=== PATIENT | female | born 1955 | race Two or more races ===

== ENCOUNTER 2021-10-03 11:40 | Emergency (ER) | payer OTHER ==
[~2021-10-03] VITALS: Ht 152.4 cm; Wt 90.7 kg
[2021-10-03] MEDS ORDERED: LOSARTAN-HCTZ1 EAC1 PO (11:48)
== END 2021-10-03 14:10 | disposition home or self-care (01) ==
LOC: ER 11:40
DX: R41.0 Disorientation, unspecified (principal); I10 Essential (primary) hypertension; E11.9 Type 2 diabetes mellitus without complications

== ENCOUNTER 2021-10-05 12:14 | Inpatient (IN) | payer OTHER ==
[~2021-10-05] VITALS: Ht 152.4 cm; Wt 81.6 kg
[~2021-10-05 12:14] MED LIST: LOSARTAN-HCTZ1 EAC1 PO
[2021-10-05] MEDS ORDERED: HYZAAR 100-251 EACH (12:33)
[2021-10-05] MEDS ORDERED: GLIPIZIDE ER10 MG (12:33)
[2021-10-06] MEDS ORDERED: NAPROXEN500 MG (10:08)
[2021-10-06] MEDS ORDERED: SIMVASTATIN10 MG (10:08)
[2021-10-06] MEDS ORDERED: ALENDRONATE SOD70 MG (10:08)
== END 2021-10-09 23:25 | DRG 66 ==
LOC: ER 12:14 → MEDI 19:38
PROVIDERS: ADMIT Internal Medicine; ATTEND Internal Medicine
PROC: 4A12X4Z Monitoring of Cardiac Electrical Activity, External Approach (ICD-10-PCS; principal; 2021-10-05)
PROC: BW28ZZZ Computerized Tomography (CT Scan) of Head (ICD-10-PCS; 2021-10-05)
PROC: B345ZZZ Ultrasonography of Bilateral Common Carotid Arteries (ICD-10-PCS; 2021-10-05)
PROC: B24BZZZ Ultrasonography of Heart with Aorta (ICD-10-PCS; 2021-10-06)
PROC: B030ZZZ Magnetic Resonance Imaging (MRI) of Brain (ICD-10-PCS; 2021-10-07)
DX: I63.89 Other cerebral infarction (principal); I69.3 Sequelae of cerebral infarction; I69.322 Dysarthria following cerebral infarction; Z20.822 Contact with and (suspected) exposure to COVID-19; I10 Essential (primary) hypertension; E11.9 Type 2 diabetes mellitus without complications; Z79.4 Long term (current) use of insulin
CPT/HCPCS: 70553